=== PATIENT | female | born 1960 | race Caucasian/White ===

== ENCOUNTER → 2022-07-14 14:28 | Outpatient (CLI) | payer BC, SELFPAY ==
[2022-07-14 14:29] LABS: Basophils # 0.1 K/mm3 (0-0.2); Basophils % 0.9 % (0.1-2.0); Eosinophils # 0.2 K/mm3 (0.0-0.4); Eosinophils % 2.3 % (0.1-12.0); Hematocrit 45.5 % (37.0-47.0); Hemoglobin 14.7 g/dL (12.2-16.2); Lymphocytes # 2.6 K/mm3 (0.7-4.5); Lymphocytes % 31.1 % (10-50); Mean Corpuscular HGB Conc 32.2 g/dL (31.8-35.4); Mean Corpuscular Hemoglobin 30.2 pg (27.0-31.2); Mean Corpuscular Volume 93.6 fl (81-99); Mean Platelet Volume 9.9 fl (7.4-10.4); Monocytes # 0.4 K/mm3 (0.1-1.0); Monocytes % 4.9 % (1.7-9.3); Neutrophils % 60.8 % (37.0-80.0); Platelet Count 298 K/mm3 (142-424); Red Blood Count 4.87 M/mm3 (4.20-5.40); Red Cell Distribution Width 13.9 % (11.5-17.5); White Blood Count 8.2 K/mm3 (4.8-10.8)
[2022-07-14 14:51] LABS: Alanine Aminotransferase 31 U/L (12-78); Albumin Level 4.5 g/dl (3.5-5.0); Albumin/Globulin Ratio 1.7 (1.1-1.8); Alkaline Phosphatase 128 U/L (38-126); Anion Gap 13.5 mEq/L (5-15); Aspartate Amino Transferase 28 U/L (14-36); Bilirubin,Total 0.5 mg/dl (0.2-1.3); Blood Urea Nitrogen 13 mg/dl (7-17); Calcium 9.7 mg/dl (8.4-10.2); Carbon Dioxide 28 mmol/L (22.0-30.0); Chloride 102 mmol/L (98-107); Chol/HDL Ratio 5.1 (1-3.5); Cholesterol 225 mg/dl (140-200); Estimated Glomerular Filt Rate 72 ml/min (>60); GFR (African American) 88 ML/MIN (>60); Globulin 2.6 g/dL (1.3-3.2); Glucose 104 mg/dl (74-100); HDL Cholesterol 44 mg/dl (40-60); Potassium 4.5 mmoL/L (3.5-5.1); Sodium 139 mmol/L (136-145); Total Protein,Serum 7.1 g/dl (6.3-8.2); Triglycerides 172 mg/dl (30-150); VLDL Cholesterol 34 mg/dL (0-40)
[2022-07-14 15:02] LABS: Direct LDL Cholesterol 143.22 mg/dL (100-129)
[2022-07-14 15:19] LABS: Thyroid Stimulating Hormone 1.29 uIU/mL (0.465-4.68)
[2022-07-14 16:07] LABS: 25-OH Vitamin D, Total 16.1 ng/mL (30-100)
== END ==
PROVIDERS: PCP Family Medicine; Visit Provider Family Medicine
DX: Z00.00 Encounter for general adult medical examination without abnormal findings (principal); E55.9 Vitamin D deficiency, unspecified; Z79.899 Other long term (current) drug therapy
CPT/HCPCS: 80053; 80061; 82306; 83036; 84443; 85025

== ENCOUNTER → 2022-08-15 08:51 | Outpatient (CLI) | payer BC, SELFPAY ==
--- NOTE | 2022-08-15 08:52 | US_ITS ---
FINAL REPORT TECHNIQUE: Ultrasound images of the thyroid were obtained. CLINICAL HISTORY: nodules FINDINGS: The thyroid is enlarged. The right lobe of the thyroid measures 5 x 2 x 3 cm. The right lobe contains a single nodule measuring 9 x 6 x 4 cm which is solid and hypoechoic consistent with TI-RADS category 4. The left lobe of the thyroid measures 5 x 2 x 2 cm. The left lobe of the thyroid contains a 4 x 3 x 3 cm cystic nodule which is TI-RADS category 1 and a 3 x 3 x 3 cm, cystic nodule which is also TI-RADS category 1. IMPRESSION: Enlarged thyroid which may represent thyroiditis or goiter. Small nodules as above TI-RADS category 4 on the right and TI-RADS category 1 on the left. Reviewed, Interpreted and Dictated by Brenton Caavzos III, MD Transcribed by Sigrid Hartley Authenticated and [facility]
--- NOTE | 2022-08-15 10:06 | MR_ITS ---
FINAL REPORT CLINICAL HISTORY: Follow up on Hemangioma FINDINGS: Multiplanar MR imaging of the brain was performed without and with contrast. There is a prominent vessel in the left periventricular region consistent with a developmental venous anomaly. Just anterior/inferior to this is a 20 mm rounded mass with heterogeneous signal and mild contrast enhancement. There is evidence of hemosiderin within the lesion. The appearance is consistent with a cavernous angioma. No other mass is identified. No abnormal extra-axial fluid collection is seen. The ventricular size is within normal limits. There is no evidence of shift of the midline structures. The posterior fossa and brainstem have an unremarkable appearance. No area of abnormal restricted diffusion is identified. IMPRESSION: Findings consistent with a cavernous angioma. Reviewed, Interpreted and Dictated by Brenton Cavazos III, MD Transcribed by Jaclyn Hu Authenticated and [facility]
[2022-08-15 11:24] LABS: Blood Urea Nitrogen 12 mg/dl (7-17); Estimated Glomerular Filt Rate 85 ml/min (>60); GFR (African American) 102 ML/MIN (>60)
== END ==
PROVIDERS: PCP Family Medicine; Visit Provider Family Medicine
DX: E04.1 Nontoxic single thyroid nodule (principal); D18.02 Hemangioma of intracranial structures
CPT/HCPCS: 36415; 70553; 76536; 82565; 84520; A9576

== ENCOUNTER → 2022-12-02 09:53 | Outpatient (CLI) | payer BC, SELFPAY ==
[2022-12-02 14:41] LABS: Free T4 (Free Thyroxine) 1.18 ng/dl (0.78-2.19)
[2022-12-02 14:45] LABS: Triiodothryronine (T3) Uptake 29 % (23.5-40.5)
[2022-12-02 14:46] LABS: Free Thyroxine Index 3.3 ug/dL (5.93-13.13); T4 (Thyroxine) 11.5 ug/dl (5.53-11.0)
[2022-12-02 14:59] LABS: Thyroid Stimulating Hormone 1.02 uIU/mL (0.465-4.68)
== END ==
PROVIDERS: PCP Family Medicine; Visit Provider Family Medicine
DX: I10 Essential (primary) hypertension (principal); E07.9 Disorder of thyroid, unspecified
CPT/HCPCS: 84436; 84439; 84443; 84479

== ENCOUNTER 2024-04-15 12:00 | Outpatient (CLI) | payer MEDICARE, SELFPAY ==
[2024-04-15 18:12] LABS: Basophils # 0.1 K/mm3 (0-0.2); Basophils % 0.9 % (0.1-2.0); Eosinophils # 0.1 K/mm3 (0.0-0.4); Eosinophils % 1.6 % (0.1-12.0); Hematocrit 45.2 % (37.0-47.0); Hemoglobin 14.2 g/dL (12.2-16.2); Lymphocytes # 2.3 K/mm3 (0.7-4.5); Lymphocytes % 32.3 % (10-50); Mean Corpuscular HGB Conc 31.4 g/dL (31.8-35.4); Mean Corpuscular Hemoglobin 29.7 pg (27.0-31.2); Mean Corpuscular Volume 94.6 fl (81-99); Mean Platelet Volume 10.6 fl (7.4-10.4); Monocytes # 0.4 K/mm3 (0.1-1.0); Neutrophils # 4.3 K/mm3 (1.8-7.8); Neutrophils % 60.1 % (37.0-80.0); Platelet Count 237 K/mm3 (142-424); Red Blood Count 4.78 M/mm3 (4.20-5.40); Red Cell Distribution Width 14.3 % (11.5-17.5); White Blood Count 7.1 K/mm3 (4.8-10.8)
[2024-04-15 19:03] LABS: Alanine Aminotransferase 27 U/L (12-78); Albumin Level 4.2 g/dl (3.5-5.0); Albumin/Globulin Ratio 1.4 (1.1-1.8); Alkaline Phosphatase 90 U/L (38-126); Anion Gap 8.4 mEq/L (5-15); Aspartate Amino Transferase 27 U/L (14-36); Bilirubin,Total 0.7 mg/dl (0.2-1.3); Blood Urea Nitrogen 10 mg/dl (7-17); Calcium 9.1 mg/dl (8.4-10.2); Carbon Dioxide 29 mmol/L (22.0-30.0); Chloride 106 mmol/L (98-107); Chol/HDL Ratio 4.5 (1-3.5); Cholesterol 206 mg/dl (140-200); Estimated Glomerular Filt Rate 63 ml/min (>60); GFR (African American) 76 ML/MIN (>60); Globulin 2.9 g/dL (1.3-3.2); Glucose 102 mg/dl (74-100); HDL Cholesterol 46 mg/dl (40-60); Potassium 4.4 mmoL/L (3.5-5.1); Sodium 139 mmol/L (136-145); Total Protein,Serum 7.1 g/dl (6.3-8.2); Triglycerides 104 mg/dl (30-150); VLDL Cholesterol 21 mg/dL (0-40)
[2024-04-15 19:13] LABS: 25-OH Vitamin D, Total 23.7 ng/mL (30-100)
[2024-04-15 19:22] LABS: Direct LDL Cholesterol 136.61 mg/dL (100-129)
[2024-04-15 19:33] LABS: Thyroid Stimulating Hormone 0.94 uIU/mL (0.465-4.68)
[2024-04-15 19:52] LABS: Vitamin B12 686 pg/mL (239-931)
== END 2024-04-15 23:59 | disposition home or self-care (01) ==
LOC: LAB.DROPOF 04-18 10:57
PROVIDERS: PCP Family Medicine; Visit Provider Family Medicine
DX: I10 Essential (primary) hypertension (principal); E55.9 Vitamin D deficiency, unspecified; E07.9 Disorder of thyroid, unspecified; E78.5 Hyperlipidemia, unspecified; E53.9 Vitamin B deficiency, unspecified
CPT/HCPCS: 80053; 80061; 82306; 82607; 84443; 85025

== ENCOUNTER 2024-09-02 11:10 | Outpatient (CLI) | payer MEDICARE, SELFPAY ==
[2024-09-02 19:19] LABS: Alanine Aminotransferase 24 U/L (12-78); Albumin Level 4.9 g/dl (3.5-5.0); Albumin/Globulin Ratio 2.1 (1.1-1.8); Alkaline Phosphatase 111 U/L (38-126); Anion Gap 14.7 mEq/L (5-15); Aspartate Amino Transferase 27 U/L (14-36); Bilirubin,Total 0.6 mg/dl (0.2-1.3); Blood Urea Nitrogen 16 mg/dl (7-17); Calcium 9.5 mg/dl (8.4-10.2); Carbon Dioxide 27 mmol/L (22.0-30.0); Chloride 101 mmol/L (98-107); Chol/HDL Ratio 4.7 (1-3.5); Cholesterol 203 mg/dl (140-200); Estimated Glomerular Filt Rate 63 ml/min (>60); GFR (African American) 76 ML/MIN (>60); Globulin 2.3 g/dL (1.3-3.2); Glucose 103 mg/dl (74-100); HDL Cholesterol 43 mg/dl (40-60); Potassium 4.7 mmoL/L (3.5-5.1); Sodium 138 mmol/L (136-145); Total Protein,Serum 7.2 g/dl (6.3-8.2); Triglycerides 131 mg/dl (30-150); VLDL Cholesterol 26 mg/dL (0-40)
[2024-09-02 19:29] LABS: Direct LDL Cholesterol 127.83 mg/dL (100-129)
[2024-09-02 19:39] LABS: T4 (Thyroxine) 10.4 ug/dl (5.53-11.0)
== END 2024-09-02 23:59 | disposition home or self-care (01) ==
LOC: LAB.DROPOF 09-03 09:55
PROVIDERS: PCP Family Medicine; Visit Provider Family Medicine
DX: Z00.00 Encounter for general adult medical examination without abnormal findings (principal); I10 Essential (primary) hypertension; D18.02 Hemangioma of intracranial structures; H35.61 Retinal hemorrhage, right eye; E04.1 Nontoxic single thyroid nodule; M15.4 Erosive (osteo)arthritis
CPT/HCPCS: 80053; 80061; 82306; 84436; 84443

== ENCOUNTER 2024-09-09 14:03 | Outpatient (CLI) | payer MEDICARE, SELFPAY ==
--- NOTE | 2024-09-09 14:03 | US_ITS ---
FINAL REPORT TECHNIQUE: Real-time grayscale and color ultrasound of the thyroid was performed. CLINICAL HISTORY: F/U nodules COMPARISON: 08/15/2022 FINDINGS: The thyroid gland measures 54 x 20 x 25 mm on the right and 54 x 23 x 27 mm on the left. The isthmus measures 8 mm. The parenchyma is unremarkable . Nodules: There is a stable 4 mm hypoechoic anterior right lobe nodule favored to represent a complex cyst over solid nodule. A posterior right lobe 5 mm hypoechoic nodule is favored to be solid over cystic, classified as TR 4. Central left lobe 6 mm hypoechoic nodule previously measured 4 mm and favored to represent cyst over solid nodule given the increased through-transmission. New 5 mm TR 4 isthmus nodule. IMPRESSION: Small thyroid nodules as above, new or increased and favored benign. Recommend 12-month follow-up per TI-RADS criteria. Reviewed, Interpreted and Dictated by Cm Pardo MD Transcribed by Leila Cárdenas Authenticated and . [facility]
--- NOTE | 2024-09-09 16:15 | MR_ITS ---
PROCEDURE INFORMATION: Exam: MR Head Without and With Contrast Exam date and time: 09/09/2024 4:42 PM Age: 64 years old Clinical indication: Condition or disease; Other: Cavernous hemangioma TECHNIQUE: Imaging protocol: Magnetic resonance imaging of the head without and with contrast. Contrast material: ISOVUE; Contrast volume: 19 ml; Contrast route: IV; COMPARISON: 1. MR HEAD/BRAIN WO/W CON 08/15/2022 10:22 AM 2. US THYROID 09/09/2024 2:20 PM 3. US THYROID 08/15/2022 9:41 AM FINDINGS: Brain: Stable appearing lesion in the left basal ganglia region measuring up to 2 cm and most suggestive of a cavernous angioma. This continues to cause mild adjacent mass effect. Cerebral ventricles: Normal. No ventriculomegaly. Bones: Unremarkable. Paranasal sinuses: Normal as visualized. No acute sinusitis. Mastoid air cells: Normal as visualized. No mastoid effusion. Orbital cavities: Unremarkable. Soft tissues: See Brain finding. IMPRESSION: Stable 2 cm lesion in the left basal ganglia region, likely cavernous angioma.
[2024-09-09] MEDS: GADOTERIDOL INJ 20ML SYRINGE 19 ML IV (17:39)
[2024-09-09] MEDS: SODIUM CHLORIDE 0.9% 10ML SYR (RAD ONLY) 10 ML IV (17:39)
== END 2024-09-09 23:59 | disposition home or self-care (01) ==
LOC: RAD 14:03
PROVIDERS: PCP Family Medicine; Visit Provider Family Medicine
DX: E04.1 Nontoxic single thyroid nodule (principal); D18.02 Hemangioma of intracranial structures
CPT/HCPCS: 70553; 76536; A9576

== ENCOUNTER 2024-11-15 13:54 | Outpatient (CLI) | payer MEDICARE, SELFPAY ==
--- NOTE | 2024-11-15 14:15 | MM_ITS ---
PROCEDURE INFORMATION: Exam: MG Bilateral Screening 3D Mammography Exam date and time: 11/15/2024 2:07 PM Age: 64 years old Clinical indication: Screening examination TECHNIQUE: Imaging protocol: Bilateral Screening tomosynthesis and 2D mammography including computer-aided detection (CAD) when performed. COMPARISON: No relevant prior studies available. FINDINGS: MAMMOGRAPHY: Breast composition: There are scattered areas of fibroglandular density. Mass: None. Architectural distortion: None. Calcifications: No suspicious calcifications. Asymmetric density: None. Skin thickening: None. Axillary adenopathy: None. IMPRESSION: No mammographic evidence of malignancy. Annual screening is recommended unless otherwise clinically indicated. ASSESSMENT: BI-RADS Category 1: Negative.
== END 2024-11-15 23:59 | disposition home or self-care (01) ==
LOC: RAD 13:54
PROVIDERS: PCP Family Medicine; Visit Provider Family Medicine
DX: Z12.31 Encounter for screening mammogram for malignant neoplasm of breast (principal)
CPT/HCPCS: 77063; 77067